=== PATIENT | female | born 1990 ===

== ENCOUNTER 2017-01-04 22:18 | Emergency (ER) | payer OTHER ==
[2017-01-04 22:38] VITALS: TEMP 98.2
[2017-01-04 23:19] LABS: BASO # 0.1 K/uL (0.0-0.2); BASO % 0.7 % (0.0-2.0); EOS % 0.3 % (0.0-4.0); HEMATOCRIT 34.4 % (34.0-47.0); LYMPH # 2.7 K/uL (1.0-4.3); LYMPH % 35.4 % (20.0-40.0); MEAN CORPUSCULAR HEMOGLOBIN 29.9 pg (27.0-31.0); MEAN CORPUSCULAR HGB CONC 33.9 g/dL (33.0-37.0); MEAN PLATELET VOLUME 10.1 fL (7.2-11.7); MONO # 0.5 K/uL (0.0-0.8); MONO % 6.9 % (0.0-10.0); RED CELL DISTRIBUTION WIDTH 13.8 % (11.5-14.5); WHITE BLOOD COUNT 7.7 K/uL (4.8-10.8)
[2017-01-04 23:22] LABS: RBC URINE 3 /hpf (0-3); URINE BACTERIA RARE (<OCC); URINE BILIRUBIN NEGATIVE (NEGATIVE); URINE BLOOD NEGATIVE (NEGATIVE); URINE COLOR Yellow (YELLOW); URINE GLUCOSE (UA) NORMAL (Normal); URINE KETONE TRACE mg/dL (NEGATIVE); URINE LEUKOCYTE ESTERASE NEG Leu/uL (Negative); URINE PROTEIN NEGATIVE (NEGATIVE); URINE UROBILINOGEN NORMAL mg/dL (0.2-1.0); WBC URINE 3 /hpf (0-5)
[2017-01-04 23:40] LABS: CHLORIDE 103 mmol/L (98-107); POTASSIUM 3.3 mmol/L (3.6-5.2); SODIUM 139 mmol/L (132-148)
[2017-01-04 23:43] LABS: ALB/GLOB RATIO 1.4 (1.0-2.1); ALKALINE PHOSPHATASE 38 U/L (38-126); ALT/SGPT 29 U/L (9-52); AST/SGOT 12 U/L (14-36); BILIRUBIN,TOTAL 0.6 mg/dL (0.2-1.3); BLOOD UREA NITROGEN 11 mg/dL (7-17); CALCIUM 9.2 mg/dl (8.6-10.4); CARBON DIOXIDE 23 mmol/L (22-30); GFR AFRICAN-AMERICAN > 60; GLUCOSE,RANDOM 81 mg/dL (65-105); TOTAL PROTEIN 6.8 g/dL (6.3-8.3)
--- NOTE | 2017-01-05 00:18 | US ---
EXAM: US Pelvis Complete, Transabdominal US Pelvis, Transvaginal CLINICAL HISTORY: 26 years old, female; Pain; Pelvic pain; Prior surgery; Surgery date: 6+ months; Surgery type: Lt fellopian tube removed; Patient HX: Urine hcg +; Additional info: L adn pain, h/o ectopic on l TECHNIQUE: Real-time transabdominal and transvaginal pelvic ultrasound (complete) with image documentation. Transvaginal imaging was used for better evaluation of the endometrium and adnexa. COMPARISON: No relevant prior studies available. FINDINGS: Uterus/cervix: Uterus measures 8.6 x 4.9 x 5.1 CM. Endometrium measures 1.8 CM in thickness. No myometrial mass. Right ovary: Right ovary measures 3.6 x 2.3 x 3.3 CM. Normal blood flow. 1.5 x 1.1 x 1.6 CM right ovarian cyst. 1.8 x 1.5 x 1.7 CM cyst versus possible dermoid. Left ovary: Left ovary measures 3.7 x 1.9 x 2.0 . normal blood flow. Free fluid: No free fluid. Bladder: Unremarkable as visualized. Wall is normal thickness for degree of distention. IMPRESSION: 1. No intrauterine is identified. 2. Small right ovarian cyst, possible dermoid. 3. Remainder of findings as above.
--- NOTE | 2017-01-05 00:20 | C.PDOC ---
History Of Present Illness 26 year old female with history of ectopic presents to the ED with complaints of lower abdominal cramping. Patient denies vaginal bleeding, fever, chills, nausea, or vomiting. Time Seen by Provider: 01/04/17 22:59 Chief Complaint (Nursing): Female Genitourinary History Per: Patient History/Exam Limitations: no limitations Onset/Duration Of Symptoms: Hrs Current Symptoms Are (Timing): Still Present Quality Of Discomfort: Cramping Associated Symptoms: denies: Fever, Chills, Nausea, Vomiting Alleviating Factors: None Recent travel outside of the [place]: No Additional History Per: Prior Records Abnormal Vaginal Bleeding: No Past Medical History Reviewed: Historical Data, Nursing Documentation, Vital Signs Vital Signs: Last Vital Signs Temp 98.2 F 01/04/17 22:32 Pulse 86 01/05/17 00:50 Resp 18 01/05/17 00:50 BP 105/72 01/05/17 00:50 Pulse Ox 98 01/05/17 02:51 Family History: States: Unknown Family Hx - Social History Hx Alcohol Use: No Hx Substance Use: Yes - Immunization History Hx Tetanus Toxoid Vaccination: No Hx Influenza Vaccination: Yes Hx Pneumococcal Vaccination: No Review Of Systems Constitutional: Negative for: Fever, Chills Cardiovascular: Negative for: Chest Pain, Palpitations Respiratory: Negative for: Cough, Shortness of Breath Gastrointestinal: Positive for: Abdominal Pain (cramping ). Negative for: Nausea, Vomiting Genitourinary: Negative for: Vaginal Bleeding Physical Exam - Physical Exam Appears: Non-toxic, No Acute Distress Skin: Warm, Dry Head: Atraumatic, Normacephalic Eye(s): bilateral: Normal Inspection, PERRL, EOMI Oral Mucosa: Moist Neck: Supple Chest: Symmetrical, No Deformity Cardiovascular: Rhythm Regular, No Murmur Respiratory: Normal Breath Sounds, No Rales, No Rhonchi, No Wheezing Gastrointestinal/Abdominal: Soft, Tenderness (left adnexal tenderness), No Distention, No Guarding, No Rebound ED Course And Treatment - Laboratory Results Result Diagrams: 01/04/17 23:16 01/04/17 23:16 Lab Interpretation: Normal (Q HCG 722.4 (low)) Urine POC: Positive O2 Sat by Pulse Oximetry: 98 (RA) - CT Scan/US US Other Rad Studies (CT/US): Read By Radiologist, Radiology Report Reviewed CT/US Interpretation: FINDINGS: Uterus/cervix: Uterus measures 8.6 x 4.9 x 5.1 CM. Endometrium measures 1.8 CM in thickness. No myometrial mass. Right ovary : Right ovary measures 3.6 x 2.3 x 3.3 CM. Normal blood flow. 1.5 x 1.1 x 1.6 CM right. ovarian cyst. 1.8 x 1.5 x 1.7 CM cyst versus possible dermoid. Left ovary: Left ovary measures 3.7 x 1.9 x 2.0 . normal blood flow. Free fluid: No free fluid. Bladder: Unremarkable as visualized. Wall is normal thickness for degree of distention. IMPRESSION: 1. No intrauterine is identified. 2. Small right ovarian cyst, possible dermoid. 3. Remainder of findings as above. Progress Note: Labs, blood work, and US were ordered. Reevaluation Time: 00:21 Reassessment Condition: Unchanged (no adnexal tender) Medical Decision Making Medical Decision Making: early not noted OR threatened AB Low Quant HCG 722, will repeat in 3 days to trend and repeat pelvic US as needed. Disposition Doctor Will See Patient In The: Office Counseled Patient/Family Regarding: Studies Performed, Diagnosis - Disposition [facility] [place] [employer] [facility] [Outside] Barbara Frank MD [Staff Provider] - Disposition: HOME/ ROUTINE Disposition Time: 00:22 Condition: GOOD Additional Instructions: continue daily vitamin 01/04: LOW Q HCG 722 Return 3 days (Saturday) to repeat Quant HCG and repeat pelvic US as needed, @ 8: 30AM to the [facility] If you have heavy menstrual period without pain then suspect Natural Return to ED for significant changes or pain as needed. Follow-up with Dr. Jany HWANG Histopathologist as needed. Instructions: Ectopic (ED), Threatened Miscarriage (ED) Forms: [employer] (Georgian) - Clinical Impression Clinical Impression: - Scribe Statement The provider has reviewed the documentation as recorded by the Scribe Luma Farrar All medical record entries made by the Scribe were at my direction and personally dictated by me. I have reviewed the chart and agree that the record accurately reflects my personal performance of the history, physical exam, medical decision making, and the department course for this patient. I have also personally directed, reviewed, and agree with the discharge instructions and disposition.
[2017-01-05 00:43] LABS: INR 1.1
[2017-01-05 01:07] VITALS: BP 105/72; PULSE 86; RESP 18
[2017-01-05 02:52] VITALS: O2SAT 98
== END 2017-01-05 00:55 | disposition home or self-care (01) ==
LOC: C.ER 22:18
DX: O26.899 Other specified pregnancy related conditions, unspecified trimester (principal); R10.30 Lower abdominal pain, unspecified

== ENCOUNTER 2017-01-07 08:44 | Emergency (ER) | payer SELFPAY ==
[2017-01-07 08:51] VITALS: RESP 18
--- NOTE | 2017-01-07 10:03 | C.PDOC ---
History Of Present Illness Patient is a 26 y/o F presenting for repeat bhcg. Patient was seen on 01/04 (3 days ago) when she presented with suprapubic cramping. She presents today for repeat bhcg. She reports some cramping but denies vaginal bleeding or vaginal discharge. She reports similar episodes of cramping with constipation. Denies vomiting. Reports that she is passing flatus. Time Seen by Provider: 01/07/17 09:11 Chief Complaint (Nursing): Medical Clearance Past Medical History Vital Signs: Last Vital Signs Temp 98 F 01/07/17 08:46 Pulse 83 01/07/17 08:46 Resp 18 01/07/17 08:46 BP 102/64 01/07/17 08:46 Pulse Ox 100 01/07/17 10:03 Family History: States: Unknown Family Hx - Social History Hx Alcohol Use: No Hx Substance Use: Yes - Immunization History Hx Tetanus Toxoid Vaccination: No Hx Influenza Vaccination: Yes Hx Pneumococcal Vaccination: No Review Of Systems Constitutional: Negative for: Fever, Chills Cardiovascular: Negative for: Chest Pain, Palpitations, Orthopnea Respiratory: Negative for: Cough, Shortness of Breath, SOB with Excertion, Wheezing Gastrointestinal: Negative for: Nausea, Vomiting, Abdominal Pain (occasional cramping), Diarrhea, Constipation Genitourinary: Negative for: Dysuria, Vaginal Discharge, Vaginal Bleeding Skin: Negative for: Rash Neurological: Negative for: Weakness, Numbness Physical Exam - Physical Exam Appears: Well, Non-toxic, No Acute Distress Skin: Normal Color, Warm, Dry Head: Atraumatic, Normacephalic Eye(s): bilateral: Normal Inspection, PERRL, EOMI Neck: Supple Chest: Symmetrical Cardiovascular: Rhythm Regular Respiratory: Normal Breath Sounds Gastrointestinal/Abdominal: Soft, No Tenderness, No Distention Back: Normal Inspection, No CVA Tenderness Extremity: Normal ROM Neurological/Psych: Oriented x3 Gait: Steady ED Course And Treatment O2 Sat by Pulse Oximetry: 100 Medical Decision Making Medical Decision Making: Repeat bhcg is 2657. Patient's ultrasound shows "Cystic focus within the endometrial canal compatible with gestational sac measuring approximately 0.4 cm, too small for gestational age calculation. No evidence of pole or yolk sac at this time. Recommend correlation with quantitative beta HCG and follow-up as indicated. 2.3 x 1.7 x 2.2 cm probable right ovarian corpus luteal cyst. 1.8 x 1.3 x 1.9 cm probable right ovarian cyst. 0.9 x 0.8 x 1.0 cm echogenic focus within the right ovary compatible with dermoid. Advise an anomaly screen at 16-18 weeks gestational age" Her abdomen is soft NT/ND. Patient has OB follow-up tomorrow morning. She was given copy of ultrasound and will follow-up with ob for further evaluation. Disposition - Disposition Disposition: HOME/ ROUTINE Disposition Time: 12:11 Condition: GOOD Additional Instructions: Follow-up with your OB tomorrow. Return immediately with any worsening symptoms. Forms: [employer] (Kyrgyz) - Clinical Impression Clinical Impression:
--- NOTE | 2017-01-07 12:04 | US ---
Indication: Cramping, Comparison: None available. Technique: Transvaginal pelvic ultrasound. Findings: The uterus measures approximately 9.5 x 5.1 x 5.7 cm. Anteverted. Cervix length measures approximately 3.1 cm. Cystic focus within the endometrial canal compatible with gestational sac measuring approximately 0.4 cm, too small for gestational age calculation. No evidence of pole or yolk sac at this time. The right ovary measures 4.1 x 2.6 x 3.2 cm. 2.3 x 1.7 x 2.2 cm probable right ovarian corpus luteal cyst. 1.8 x 1.3 x 1.9 cm probable right ovarian cyst. 0.9 x 0.8 x 1.0 cm echogenic focus within the right ovary compatible with dermoid. The left ovary measures 2.7 x 2.2 x 2.5 cm. Blood flow was demonstrated to both ovaries. Impression: Cystic focus within the endometrial canal compatible with gestational sac measuring approximately 0.4 cm, too small for gestational age calculation. No evidence of pole or yolk sac at this time. Recommend correlation with quantitative beta HCG and follow-up as indicated. 2.3 x 1.7 x 2.2 cm probable right ovarian corpus luteal cyst. 1.8 x 1.3 x 1.9 cm probable right ovarian cyst. 0.9 x 0.8 x 1.0 cm echogenic focus within the right ovary compatible with dermoid. Advise an anomaly screen at 16-18 weeks gestational age
[2017-01-07 12:19] VITALS: BP 100/61; PULSE 62; TEMP 98.2; O2SAT 98
== END 2017-01-07 12:20 | disposition home or self-care (01) ==
LOC: C.ER 08:44
DX: O26.891 Other specified pregnancy related conditions, first trimester (principal); Z3A.00 Weeks of gestation of pregnancy not specified

== ENCOUNTER 2017-04-27 14:45 | Emergency (ER) | payer MEDICAID, OTHER ==
[2017-04-27 15:09] VITALS: BMI 27.4
[2017-04-27] MEDS ORDERED: Lactated Ringer's 1,000 ML IV ONE (15:18)
[2017-04-27 15:27] LABS: BASO % 0.3 % (0.0-2.0); LYMPH # 0.7 K/uL (1.0-4.3); LYMPH % 7.6 % (20.0-40.0); MEAN CELL VOLUME 89.1 fL (81.0-99.0); MEAN CORPUSCULAR HEMOGLOBIN 30.7 pg (27.0-31.0); MEAN CORPUSCULAR HGB CONC 34.4 g/dL (33.0-37.0); MEAN PLATELET VOLUME 9.6 fL (7.2-11.7); MONO # 0.3 K/uL (0.0-0.8); MONO % 3.6 % (0.0-10.0); NEUT % 88.5 % (50.0-75.0); PLATELET COUNT 147 K/uL (130-400); RBC 3.59 Mil/uL (3.80-5.20); RED CELL DISTRIBUTION WIDTH 13.6 % (11.5-14.5); WHITE BLOOD COUNT 9.1 K/uL (4.8-10.8)
--- NOTE | 2017-04-27 15:29 | OBHP ---
Datetime: 04/27/2017 15:24 IP Adm Impression: , intrauterine Admit Comment, IP Provider: 26 y/o @ 20.6 wks GA c/o of nausea, vomiitng since this morning after being expsoure to sick contact of child she was takign care of. pt denies any fever, chills, cp , sob. pt reports diarreha x 1, non bloody. pt reports limited appeitie. pt dneis any weakness but re ports not feeling well. pt dnei sany ctx, lof, vb and rpeorts movements. pt reports she did not get flu vaccine. Ante: [facility] OB: FT CXS failure to dilated FT, ectopic s/p laparscopy SCREEN STRETCHER: Dneie hx of abnorma papa, fibroids, ovarian cyst, STI PMH: marie PSH: laparscopy, CXS FHX: non contriubory MEDS: None ALLEGY: PCN, amoxicllin SHX :negative etoh/tobacco/drugs A/P 26y/o @ 20.6 wks GA with gastoeneteritis -f/u labs CBC, CMP, Amylase, lipase, UA -IVH -PO challenge -reevluate Pelvic Type - PN: Adequate Extremities - PN: Normal Abdomen - PN: Normal Back - PN: Normal Breast - PN: Not Done Lungs - PN: Normal Heart - PN: Normal Thyroid - PN: Not Done Neurologic - PN: Normal HEENT - PN: Normal General - PN: Normal Presentation-Admit: Transverse FHR - Baseline A Provider: 142 Membranes, Provider: Intact Comments, ACOG Physical Exam: abd; soft, nt, nd, no ugaridn, no rebound tenderness, no rigidty, BACK no cva, flank pain Gestation - Est Wks by US: 20.6 EGA AdmitDate IP: 20.6 IP Chief Complaint: Other Dilatation, Provider: 0 Genitourinary Exam: Normal DTRs - PN: Normal
[2017-04-27 15:43] LABS: SQUAMOUS EPITHIAL 3 /hpf (0-5); URINE BILIRUBIN NEGATIVE (NEGATIVE); URINE BLOOD NEGATIVE (NEGATIVE); URINE CLARITY Clear (Clear); URINE COLOR Yellow (YELLOW); URINE GLUCOSE (UA) NORMAL (Normal); URINE LEUKOCYTE ESTERASE TRACE Leu/uL (Negative); URINE NITRATE NEGATIVE (NEGATIVE); URINE PROTEIN 1+ mg/dL (NEGATIVE)
[2017-04-27 15:47] LABS: ALB/GLOB RATIO 1.1 (1.0-2.1); ALBUMIN 3.5 g/dL (3.5-5.0); ALT/SGPT 20 U/L (9-52); AMYLASE 80 U/L (30-110); AST/SGOT 16 U/L (14-36); BLOOD UREA NITROGEN 6 mg/dL (7-17); CALCIUM 8.3 mg/dl (8.6-10.4); GFR AFRICAN-AMERICAN > 60; GFR NON-AFRICAN AMERICAN > 60; LIPASE 32 U/L (23-300)
[2017-04-27 16:33] LABS: HYPOCHROMIC SLIGHT; LYMPHOCYTE 15 % (20-40); MONOCYTE 2 % (0-10); NEUTROPHIL 83 % (50-75); OVALOCYTES SLIGHT; PLATELET ESTIMATE NORMAL (NORMAL); POIKILOCYTOSIS SLIGHT; TOTAL CELLS COUNTED 100
--- NOTE | 2017-04-27 17:57 | OBDCSUM ---
Datetime: 04/27/2017 17:54 Follow up at, Provider: clinic Disch Instr Activity: Normal activity Disch Instr Diet: Regular Discharge Diet restrict Prov: modifed liquid diet until tolerate regular Discharge Time: 04/27/2017 17:54 Follow up in weeks, Provider: 1 week Discharge Comment, Provider: Precaution sgive Discharge Diagnosis Prov Other: gastroeneterisi
[2017-04-27 22:18] VITALS: BP 102/64; PULSE 101; RESP 16; TEMP 98.6
== END 2017-04-27 18:16 | disposition home or self-care (01) ==
LOC: C.EROB 14:45
DX: O26.892 Other specified pregnancy related conditions, second trimester (principal); K52.9 Noninfective gastroenteritis and colitis, unspecified; Z3A.20 20 weeks gestation of pregnancy
CPT/HCPCS: 80053; 81001; 82150; 83690; 85025; 87804; 96361; 96374; 99283; J2405; J7120

== ENCOUNTER 2017-08-29 16:46 | Emergency (ER) | payer OTHER ==
[2017-08-29 17:10] VITALS: BMI 31.2
--- NOTE | 2017-08-29 17:35 | OBHP ---
Datetime: 08/29/2017 17:25 IP Adm Impression: Term, intrauterine ; Ruptured Membranes IP Admit Plan: Discharge home Admit Comment, IP Provider: Pt is [id number]@ 37 6/ by EDC of 09/13. presents today with complaints of leaking of fluid since 3pm. She states that the fluid was present when she wipes. Denies vaginal ble eding. +FM. POBHx: prior c/s x1 2012. Male 7lbs 15oz. PMHx: bipolar disorder. 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 ALL:NKDA. PSHx; C/S FHx: Breast cancer: paternal aunts, colon ca; negative. Ovarian cancer: negative history. ROS: HEENT: negative, Chest: negative, breast: negative. resp: negative, muscl: negative, neuro: n egative, Gi/: negative. PE: SSE: nitrazine: negative. A/P: [id number]@ 37 6 presents today with complaints of leaking of fluid 1) Vitals stable. 2) complaints of leaking of fluid: nitrazine negative. 3) Discharge home. 4) Pt has plans for repeat c/s @ 39 weeks. Pelvic Type - PN: Adequate Extremities - PN: Normal Abdomen - PN: Normal Back - PN: Normal Breast - PN: Normal Lungs - PN: Normal Heart - PN: Normal Thyroid - PN: Normal Neurologic - PN: Normal HEENT - PN: Normal General - PN: Normal FHR - Baseline A Provider: 150 Membranes, Provider: Intact Contraction Comments Provider: none Comments, ACOG Physical Exam: SSE: no pooling of fluid noted, nitrazine negative SVE: Closed/long/hi Gestation - Est Wks by US: 37 6/7 Pool Provider: Negative Nitrazine Provider: Negative EGA AdmitDate IP: 37.6 Vital Signs Provider: Reviewed IP Chief Complaint: Other NICHD Variability Prov Fetus A: Moderate 6-25bpm NICHD Accel Fetus A IP Provider: 15X15 FHR Category Provider Fetus A: Category I NICHD Decel Fetus A IP Provider: None Dilatation, Provider: 0 Effacement, Provider: 0 Station, Provider: -3 Genitourinary Exam: Normal DTRs - PN: Normal
[2017-08-29 21:51] VITALS: BP 101/57; PULSE 116
== END 2017-08-29 17:35 | disposition home or self-care (01) ==
LOC: C.EROB 16:46
DX: O47.1 False labor at or after 37 completed weeks of gestation (principal); Z3A.37 37 weeks gestation of pregnancy

== ENCOUNTER 2017-09-06 07:08 | Inpatient (IN) | payer OTHER ==
[2017-09-06] MEDS ORDERED: Clindamycin 600mg/50ml NS 600 MG/50 ML BAG IVPB ONE (07:27)
[2017-09-06] MEDS ORDERED: Sodium Citrate/Citric Acid 15 ml Sol PO ONE (07:27)
[2017-09-06] MEDS ORDERED: Lactated Ringer's 1,000 ML IV SCH (07:30)
[2017-09-06 07:59] LABS: BASO % 0.3 % (0.0-2.0); EOS % 0.3 % (0.0-4.0); LYMPH # 2.2 K/uL (1.0-4.3); LYMPH % 28.2 % (20.0-40.0); MEAN CELL VOLUME 77.1 fL (81.0-99.0); MEAN CORPUSCULAR HEMOGLOBIN 25.9 pg (27.0-31.0); MEAN CORPUSCULAR HGB CONC 33.6 g/dL (33.0-37.0); MEAN PLATELET VOLUME 9.1 fL (7.2-11.7); MONO # 0.6 K/uL (0.0-0.8); MONO % 7.8 % (0.0-10.0); NEUT # 4.9 K/uL (1.8-7.0); NEUT % 63.4 % (50.0-75.0); RBC 3.46 Mil/uL (3.80-5.20); RED CELL DISTRIBUTION WIDTH 15.9 % (11.5-14.5); WHITE BLOOD COUNT 7.7 K/uL (4.8-10.8)
[2017-09-06] MEDS ORDERED: ePHEDrine 50 mg/ml Inj ONE (08:06)
[2017-09-06] MEDS ORDERED: Succinylcholine Chloride 20 mg/ml Syr (5 ml) IV ONE (08:08)
[2017-09-06 08:18] LABS: ALB/GLOB RATIO 0.9 (1.0-2.1); ALBUMIN 3.2 g/dL (3.5-5.0); AST/SGOT 17 U/L (14-36); BLOOD UREA NITROGEN 10 mg/dL (7-17); CALCIUM 9.1 mg/dl (8.6-10.4); GFR AFRICAN-AMERICAN > 60; GFR NON-AFRICAN AMERICAN > 60
[2017-09-06 08:20] LABS: SQUAMOUS EPITHIAL 3 /hpf (0-5); URINE BILIRUBIN NEGATIVE (NEGATIVE); URINE BLOOD NEGATIVE (NEGATIVE); URINE CLARITY Clear (Clear); URINE COLOR Yellow (YELLOW); URINE GLUCOSE (UA) NORMAL (Normal); URINE LEUKOCYTE ESTERASE TRACE Leu/uL (Negative); URINE PROTEIN NEGATIVE (NEGATIVE); URINE UROBILINOGEN NORMAL mg/dL (0.2-1.0)
[2017-09-06 08:25] LABS: ALT/SGPT < 6 U/L (9-52)
[2017-09-06] MEDS ORDERED: Sodium Citrate/Citric Acid 15 ml Sol ONE (08:50)
[2017-09-06] MEDS ORDERED: Oxytocin 20 units in LR 2,000 ML IV ONE (08:50)
[2017-09-06 09:08] LABS: BARBITURATES, UR NEGATIVE (NEGATIVE); BENZODIAZEPINES, UR NEGATIVE (NEGATIVE); OPIATES, UR NEGATIVE (NEGATIVE); PHENCYCLIDINE, UR NEGATIVE (NEGATIVE)
--- NOTE | 2017-09-06 09:09 | OBADHP ---
Datetime: 09/06/2017 07:50 Admit Comment, IP Provider: Patient is a 27 year old at 39w0d MIGUEL 09/13/17 by 6w6d US presents to L+D for scheduled repeat C/S. Patient is doing well, offers no complaints at this time. Patient e ndorses +FM, denies CTX, VB, LOF. 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 2012 PLTCD 2/2 failure to progress, male , 7lbs 15oz, no complications 2. 2013 Ectopic 3. Current [employer] Hx: LMP 12/02/16 Triad: 12 x regular x 3 days History of Ovarian cysts Denies History of fibroids, abnormal pap smear Positive Trichomonas in this - treated; History of Chlamydia Allergies: PCN, amoxicillin (Rash) Medications: PNV Medical History: Gastritis, Bipolar, Depression/Anxiety Surgical History: Left salpingectomy, skin mole removal Social History: Denies alcohol, tobacco, drug use Family History: Denies PE: See above A/P: 27 year old at 39w0d presents for repeat C section -Stable, afebrile -Admit to unit -CEFM and TOCO -Admission labs: CBC, CMP, UA, UTOX, T+S -Diet: NPO -Lactated Ringers @ 125cc/hr -Gentamicin 80mg/Clindamycin 900mg, Pepcid, Bictra preoperatively -Consents signed -Anesthesia notified -Will need psychiatric social worker supervisor consult for THC use in -Plan discussed with Dr Zac Alexander DO PGY-1 agree with above x of HSV not on suppression ltherapy, last outpbreak 2012 and reports acyclovir x 10 day, last brooke oitmetn 08/16 admit for repeat cxs jehovah witness dcliend blood trnasfion: pt infomre dof option ofIVH, medicaon, and hsyterecotmy v s in which no longer able to have more hcildrne. pt understand and accepts all risk incluidng carmencita roxana. consent obtained and witnessed FHR - Baseline A Provider: 130 Contraction Comments Provider: irregular Comments, ACOG Physical Exam: VS: 110/58 97 Gen: AAOx3 CV: RRR Lungs: CTA B/L Abd: soft, gravid Ext: No clubbing, cyanosis, edema; no calf tenderness IP Hx Assessment: The History has been Reviewed and is Current Vital Signs Provider: Reviewed; Within Normal Limits IP Chief Complaint: Scheduled Section NICHD Variability Prov Fetus A: Moderate 6-25bpm NICHD Accel Fetus A IP Provider: 15X15 FHR Category Provider Fetus A: Category I NICHD Decel Fetus A IP Provider: None EGA AdmitDate IP: 39.0 IP Adm Impression: Term, intrauterine IP Admit Plan: Admit to unit; Initiate Section protocol Datetime: 08/29/2017 17:25 Pelvic Type - PN: Adequate Extremities - PN: Normal Abdomen - PN: Normal Back - PN: Normal Breast - PN: Normal Lungs - PN: Normal Heart - PN: Normal Thyroid - PN: Normal Neurologic - PN: Normal HEENT - PN: Normal General - PN: Normal Membranes, Provider: Intact Gestation - Est Wks by US: 37 6/7 Pool Provider: Negative Nitrazine Provider: Negative Dilatation, Provider: 0 Effacement, Provider: 0 Station, Provider: -3 Genitourinary Exam: Normal DTRs - PN: Normal Datetime: 04/27/2017 15:24 Presentation-Admit: Transverse
[2017-09-06] MEDS ORDERED: Propofol 10 mg/ml Inj (20 ML) ONE (09:17)
--- NOTE | 2017-09-06 10:20 | OBDS ---
DELIVERY PERSONNEL Delivery Doctor: Jany Frank MD Scrub Nurse: Ashley Mitchell OBT Billet Heater Operator: Jatinder Estrella RN Anesthesiologist: Landon Mejía MD Resident: CYNTHIA MATERNAL INFORMATION Delivery Anesthesia: Spinal Placenta Cultured: No Maternal Complications: None RN Comments: see patients extensive history Provider Comments: repeta cxs live femlae infat cephaic presenation normal appering utuers, ovaries no left fallopian tube preivous ectopic prengancy ebl 800ml apars 9,9 weight of 6lbs 9 ounces LABOR SUMMARY EDC: 09/13/2017 00:00 No. Babies in Womb: 1 Attempted: No Labor Anesthesia: None LABOR INFORMATION Reason for Induction: Not Applicable Oxytocin: N/A Group B Beta Strep: Negative Steroids Given: None Reason Steroids Not Administered: Not Applicable MEMBRANES Membranes Rupture Method: Artificial Rupture of Membranes: 09/06/2017 09:41 Length of Rupture (hrs): 0.02 Amniotic Fluid Color: Clear Amniotic Fluid Amount: Moderate Amniotic Fluid Odor: Normal STAGES OF LABOR Stage 3 hrs: 0 Stage 3 min: 1 CSECTION DELIVERY Primary Indication: Repeat Elective CSection Urgency: Elective CSection Incidence: Repeat Labor: N/A Elective: Elective CSection Incision: Lower Uterine Transverse BABY A INFORMATION Infant Delivery Date/Time: 09/06/2017 09:42 Method of Delivery: Born in Route : No : N/A Forceps: N/A Vacuum Extraction: N/A Shoulder Dystocia : No SHOULDER DYSTOCIA BABY A Delivery Date/Time: 09/06/2017 09:42 PRESENTATION/POSITION BABY A Presentation: Cephalic Cephalic Presentation: Vertex Vertex Position: Left Occipital Posterior Breech Presentation: N/A PLACENTA INFORMATION BABY A Placenta Delivery Time : 09/06/2017 09:43 Placenta Method of Delivery: Manual Removal Placenta Status: Delivered SCORES BABY A Heart Rate 1 min: >100 bpm Resp Effort 1 min: Good Cry Reflex Irritability 1 min: Cough or Sneeze or Pulls Away Muscle Tone 1 min: Active Motion Color 1 min: Body [place], Extremities Blue Resuscitation Effort 1 min: Tactile Stimulation SCORE 1 MIN: 9 Heart Rate 5 min: >100 bpm Resp Effort 5 min: Good Cry Reflex Irritability 5 min: Cough or Sneeze or Pulls Away Muscle Tone 5 min: Active Motion Color 5 min: Body [place], Extremities Blue Resuscitation Effort 5 min: N/A SCORE 5 MIN: 9 INFORMATION BABY A Gestational Age at Delivery: 39.0 Gestational Status: Term Outcome : Liveborn Infant Condition : Stable Infant Sex: Female IDENTIFICATION/MEDS BABY A ID Band Number: [id number] ID Band Location: Left Leg; Left Arm Sensor Applied: Yes Sensor Number: [id number] Sensor Location : Cord Clamp WEIGHT/LENGTH BABY A Birthweight (gms): 2945 Weight (lb): 6 Weight (oz): 8 Length Inches: 19.00 Infant Length cms: 48.3 CORD INFORMATION BABY A No. Cord Vessels: 3 Nuchal Cord : N/A Cord Blood Taken: Yes Infant Suction: Mouth; Nose
--- NOTE | 2017-09-06 10:23 | PCM.SURG1 ---
Surgeon's Initial Post Op Note - Surgeon's Notes Surgeon: Barbara Frank MD Magazine Filler: Sandra Moreno Pre-Operative Diagnosis: Term intrauterine pergnancy, 39+ weeks, previous cesearen section elective repeat Operative Findings: live female infant, cephalic presentatin, agpars 99, weight of 6lbs 8 ounces. normal uteurs overias b/l, no left fallopian tue, normal right fallopian tube. pediatriicn presnt fo rdelviery ebl 800mg. Dr Isaías Winter was present for entire case and was surigcal executive assistant to general counsel and was essential in gaining entry, retraction, expsoure, holding the bladder blade, helping to deliver infant, cloasing all layers and obtaining hemostasis Post-Operative Diagnosis: same as above Operation Performed: Repeat low transverse cesearean section Specimen/Specimens Removed: placenta Estimated Blood Loss: EBL {In ML}: 800 Blood Products Given: N/A Drains Used: No Drains Date of Surgery/Procedure: 09/06/17 Time of Surgery/Procedure: 09:15
[2017-09-06] MEDS ORDERED: Oxycodone/Acetaminophen 5/325 mg Tab PO PRN ×2 (10:27→10:40)
[2017-09-06] MEDS ORDERED: DiphenhydrAMINE 50 mg/ml Inj IVP PRN (10:40)
[2017-09-06] MEDS ORDERED: Naloxone 0.4 mg/ml Inj (Adult) IVP PRN (10:40)
[2017-09-06 13:51] LABS: HEMOGLOBIN 8.2 g/dL (11.0-16.0)
[2017-09-06] MEDS: Simethicone 80 mg Chewtab PO SCH ×3 (14:05→23:22)
[2017-09-06] MEDS ORDERED: Morphine 4 MG/ML VIAL IVP PRN (20:00)
--- NOTE | 2017-09-06 22:23 | OP ---
PROCEDURE DATE: 09/06/2017 SURGEON: Barbara Frank MD TINTER PHOTOGRAPH: Isaías Winter MD; . PREOPERATIVE DIAGNOSES: Term intrauterine at 39 weeks, previous section, like to repeat, poorly compliant. POSTOPERATIVE DIAGNOSES: Term intrauterine at 39 weeks, previous section, like to repeat, poorly compliant. OPERATION PERFORMED: Repeat low transverse section. SPECIMEN REMOVED: Placenta. ESTIMATED BLOOD LOSS: 800 mL. BLOOD PRODUCTS: None. COMPLICATIONS: None. OPERATIVE FINDINGS: Live female , cephalic presentation, Apgars 9 and 9, weight is 6 pounds 8 ounces. Normal-appearing uterus and ovaries bilaterally. No left fallopian tube, history consistent with prior ectopic. Normal right fallopian tube. Net Trainer was present for the delivery. EBL [address] Isaías Winter, the neurosurgical nurse practitioner, was present for the entire case, essential in gaining entry, retraction, exposure, helping to hold the bladder blade, helping to deliver the , closing all layers, and obtaining hemostasis. DESCRIPTION OF PROCEDURE: The patient was taken to the operating room where she was given spinal anesthesia. Once it was found to be adequate, she was positioned on the operating table in dorsal supine position. The patient was prepped and draped in the usual sterile fashion. Time-out confirmed correct patient and correct procedure. A Pfannenstiel skin incision was made with a scalpel after preoperative prophylactic antibiotics, carried down to the underlying fascia with a Bovie. The fascia was incised in the midline, and the incision extended laterally with the Bovie. The inferior aspect of the fascial incision was grasped with Allis and Kurt clamps, and the underlying rectus muscles were dissected off bluntly. Attention was then turned to the superior aspect with the similar fashion. It was grasped with Allis and Kurt clamps, and the underlying rectus muscles were dissected off with Turner scissors. The rectus muscles were then bluntly in the midline. The peritoneum identified and entered in a clear space. The incision was extended laterally and superiorly until there was good visualization of the bladder. The lower end of the Shahla was then reinserted. The lower uterine segment was incised in a transverse fashion. The uterine incision was extended laterally bluntly. Amniotic membranes were then ruptured. Clear fluid was noted. The surgeon's hand entered the uterine cavity. The infant's head was delivered atraumatically followed by delivery of the shoulders and followed by delivery of the body. Both oral and nasal passages of the baby were bulb suctioned. The umbilical cord was clamped and cut. The baby was handed off to the awaiting bicycle repair technician. Cord blood and cord gases were collected and sent x2. The placenta was then delivered manually. The uterus was exteriorized and was cleared off all clots and debris. The uterine incision was closed with 0 Vicryl in a running continuous locked fashion. A second layer was closed using 0 Monocryl in a running imbricating manner. There was good hemostasis noted at the uterine incision site. The uterus was then returned to the abdomen. Paracolic gutters were cleared off all clots and debris. The peritoneum was reapproximated and closed with 2-0 chromic in a running continuous fashion. There was good hemostasis noted. The rectus was reapproximated and closed with 2-0 chromic in an interrupted manner. The fascia was reapproximated and closed with 0 Vicryl in a running continuous fashion. Subcutaneous layers were closed with 2-0 in an interrupted manner. The skin was reapproximated with 3-0 Monocryl in a running subcuticular fashion. At the end of the procedure, all the needle, sponge, and instrument counts were noted to be correct x2. The patient tolerated the procedure well and was transferred to the recovery room in stable condition. Barbara Frank MD
--- NOTE | 2017-09-07 07:49 | OBPPN ---
Datetime: 09/07/2017 07:46 PP Pain Prov: Within normal limits PP Nausea Prov: Denies PP Flatus Prov: No PP BM Prov: No PP Comments Phys Exam Prov: fudus below umb ext nom edema, no calf ten incision claean and dry PP Impression Prov: Normal progression PP Plan Prov: Continue present management PP Progress Note Prov: pt was seen at bed side, painn under control,nom n/v, tolerating deit, waitin g to void,min lochia,flatus- pod#1 liquid deit witing to void cont post op care cont pain ma encourage am Vital Signs Provider PP: Reviewed; Within Normal Limits
[2017-09-07] MEDS: Oxycodone/Acetaminophen 5/325 mg Tab PO PRN ×3 (08:02→21:39)
[2017-09-07 08:22] LABS: BASO % 0.4 % (0.0-2.0); EOS % 0.2 % (0.0-4.0); HEMOGLOBIN 7.5 g/dL (11.0-16.0); LYMPH # 1.6 K/uL (1.0-4.3); LYMPH % 16.9 % (20.0-40.0); MEAN CELL VOLUME 76.7 fL (81.0-99.0); MEAN CORPUSCULAR HEMOGLOBIN 25.5 pg (27.0-31.0); MEAN CORPUSCULAR HGB CONC 33.2 g/dL (33.0-37.0); MEAN PLATELET VOLUME 9.1 fL (7.2-11.7); MONO # 0.7 K/uL (0.0-0.8); MONO % 7.1 % (0.0-10.0); NEUT # 7.2 K/uL (1.8-7.0); NEUT % 75.4 % (50.0-75.0); RBC 2.95 Mil/uL (3.80-5.20); WHITE BLOOD COUNT 9.6 K/uL (4.8-10.8)
[2017-09-07] MEDS: Simethicone 80 mg Chewtab PO SCH ×4 (09:34→21:40)
[2017-09-07] MEDS: Prenatal Multivit/Folic Acid/Iron Tab PO SCH (09:35)
[2017-09-07] MEDS ORDERED: Bisacodyl 5mg EC Tab PO ONE (10:27)
[2017-09-08] MEDS: Oxycodone/Acetaminophen 5/325 mg Tab PO PRN ×3 (06:43→22:30)
[2017-09-08] MEDS: Simethicone 80 mg Chewtab PO SCH ×4 (09:07→21:44)
[2017-09-08] MEDS: Prenatal Multivit/Folic Acid/Iron Tab PO SCH (09:08)
--- NOTE | 2017-09-08 11:29 | OBPPN ---
Datetime: 09/08/2017 11:27 PP Pain Prov: Within normal limits PP Nausea Prov: Denies PP Flatus Prov: Yes PP BM Prov: Yes PP Abdomen/Uterus Prov: Normal PP Lochia Prov: Normal PP Extremities Prov: Normal PP C/S Incision Prov: Normal PP Comments Phys Exam Prov: fudus below umblicus ext no edema,no calf ten incisio cleqan and dry PP Impression Prov: Normal progression PP Plan Prov: Continue present management PP Progress Note Prov: pt was seen at bed side, pain under control,no n/v, tolerating deit, voiding, mi lochia, flatus+ pod#2 s/p c/s anemia fe cont pain man encourage ambulation cont post op care Vital Signs Provider PP: Reviewed; Within Normal Limits
[2017-09-08 16:01] VITALS: RESP 20; TEMP 98.4
[2017-09-09] MEDS: Simethicone 80 mg Chewtab PO SCH (09:19)
[2017-09-09] MEDS ORDERED: Varicella Virus Vaccine Inj SC ONE (09:37)
[2017-09-09] MEDS: Prenatal Multivit/Folic Acid/Iron Tab PO SCH (11:38)
--- NOTE | 2017-09-09 15:48 | OBPPN ---
Datetime: 09/09/2017 15:35 PP Pain Prov: Within normal limits PP Nausea Prov: Denies PP Flatus Prov: Yes PP BM Prov: Yes PP Breasts Prov: Normal PP Heart Prov: Normal PP Lungs Prov: Normal PP Abdomen/Uterus Prov: Normal PP CVA Tenderness Prov: Normal PP Extremities Prov: Normal PP C/S Incision Prov: Normal PP Progress Prov: Normal PP Impression Prov: Normal progression PP Plan Prov: Discharge PP Progress Note Prov: s: no c/o. pain well controlled percocet _ motrin. o: hgb 7.5 I: pod3 repeat cd doing well P: d/c home f/u w/ ob clinic reg need for HepBvaccine varicell vacc today rx motrin, percocet 5/325, senokot s, feso4 bid. IP PP Procedures: None Vital Signs Provider PP: Reviewed; Within Normal Limits
--- NOTE | 2017-09-09 15:50 | OBDCSUM ---
Datetime: 09/09/2017 10:27 Discharged to, Provider: Home Follow up at, Provider: [facility] Disch Instr Activity: Normal activity Disch Instr Diet: Regular Discharge Instructions, Provider: Specific instructions as noted Discharge Diagnosis, Provider: Term Delivered Discharge Time: 09/09/2017 10:29 Follow up in weeks, Provider: 09/13/2017 Disch Referrals: None Discharge Instruct Comment, Prov: pp and postop Contraception discussed, Prov: No Disch Activity Restrictions: No exercising; No lifting; No driving; No sexual activity; Nothing in v agina - Armstrong, tampons, douche Discharge Comment, Provider: d/c home f/u w/ ob clinic reg need for HepBvaccine varicell vacc today rx motrin, percocet 5/325, senokot s, feso4 bid. Contraception after Delivery: Undecided
[2017-09-09 17:30] VITALS: BP 107/67; PULSE 93; O2SAT 98
== END 2017-09-09 13:21 | disposition home or self-care (01) | DRG 370 ==
LOC: C.4D 07:08 → C.4M 12:53
PROVIDERS: ADMIT Obstetrics & Gynecology; ATTEND Obstetrics & Gynecology
PROC: 10D00Z1 Extraction of Products of Conception, Low, Open Approach (ICD-10-PCS; principal; 2017-09-06)
DX: O34.211 Maternal care for low transverse scar from previous cesarean delivery (principal); O99.324 Drug use complicating childbirth; O99.02 Anemia complicating childbirth; F12.90 Cannabis use, unspecified, uncomplicated; Z37.0 Single live birth; Z3A.39 39 weeks gestation of pregnancy; A59.9 Trichomoniasis, unspecified; F32.9 Major depressive disorder, single episode, unspecified; F41.9 Anxiety disorder, unspecified; O98.32 Other infections with a predominantly sexual mode of transmission complicating childbirth